=== PATIENT | male | born 1985 | race Caucasian/White ===

== ENCOUNTER 2020-10-25 18:41 | Emergency (ER) | payer OTHER ==
[2020-10-25 18:55] VITALS: TEMP 99.1; BMI 26.6
[2020-10-25 20:14] VITALS: BP 140/85; PULSE 105
== END 2020-10-25 20:14 | disposition home or self-care (01) ==
LOC: JERFT 18:41
DX: G89.18 Other acute postprocedural pain (principal); M25.551 Pain in right hip
CPT/HCPCS: 73502-TC-RT-FY; 99284-25